=== PATIENT | female | born 2000 | race Caucasian/White ===

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

== ENCOUNTER 2019-08-21 09:31 | Emergency (ER) | payer OTHER ==
[2019-08-21 09:36] VITALS: BP 110/62; PULSE 87; TEMP 98.2; BMI 17.5
--- NOTE | 2019-08-21 09:57 | PDOC ---
History of Present Illness - General Chief Complaint: Injury Stated Complaint: HEAD INJURY Time Seen by Provider: 08/21/19 09:56 History Source: Patient Exam Limitations: No Limitations - History of Present Illness Initial Comments: Pt is a 18 yo F, with PMH of open R tibia fracture (s/p hardware placement), who is presenting after a fall just prior to arrival. Pt states her sweater got caught in the door just above the stairway, and she tripped forward, tumbling down the flight (10) steps. There was an open door at the bottom of the stairwell, which pt hit the L side of her head against. Pt complains now of midline upper spinal pain, and pain over the L anabaptist and R wrist at the base of the thumb. Pt denies any LOC, nausea/vomiting, or confusion. Mother and grandmother witnessed the fall, and state pt has been at baseline behavior. Pt denies recent fevers/chills, headache, vision changes, syncope, chest pain, palpitations, SOB, nausea/vomiting, abdominal pain, urinary symptoms, diarrhea/ constipation, or leg swelling. Pt states this fall was an accident, and has no SI or HI. Allergies: NKDA PCP: Dr. Martinez Pain Management: Dr. Jose Copeland -- pt takes percocet and gabapentin for R lower leg pain Social: Pt denies any cigarette, alcohol, or drug use. Pt is currently undomiciled. Pt denies any recent travel or sick contacts. Surgical: R tibia, see above Family: no relevant history. 08/21/19 11:47 08/21/19 11:51 Past History - Travel Traveled outside of the country in the last 30 days: No Close contact w/someone who was outside of country & ill: No - Past Medical History Allergies/Adverse Reactions: Allergies Allergy/AdvReac Type Severity Reaction Status Date / Time No Known Drug Allergies Allergy Verified 08/21/19 09:36 seafood Allergy Mild Swelling Uncoded 08/21/19 09:36 Home Medications: Ambulatory Orders Ferrous Sulfate [Feosol] 325 mg PO DAILY 07/01/18 Pnv,Calcium 72/Iron/Folic Acid [ Plus Tablet] 1 tab PO DAILY 07/01/18 Ibuprofen [Motrin -] 400 mg PO QID #28 tablet 07/04/18 Asthma: No Cancer: No Cardiac Disorders: No COPD: No Diabetes: No HTN: No Seizures: No Thyroid Disease: No - Immunization History Immunization Up to Date: Yes - Psycho Social/Smoking Cessation Hx Smoking Status: No Smoking History: Current every day smoker Have you smoked in the past 12 months: Yes Number of Cigarettes Smoked Daily: 20 Information on smoking cessation initiated: No Hx Alcohol Use: No Drug/Substance Use Hx: No Substance Use Type: None Hx Substance Use Treatment: No Trauma Specific PMHX - Complaint Specific PMHX Arthritis: No Back Injury: No Neck Injury: No Hx Sacro Iliac Joint Dysfunction: No Review of Systems - Review of Systems Able to Perform ROS?: Yes Is the patient limited Czech proficient: No Constitutional: Yes: Weight Stable. No: Chills, Diaphoresis, Fever, Loss of Appetite, Malaise, Weakness HEENTM: No: Blurred Vision, Recent change in vision, Nose Congestion, Nose Bleeding, Hearing Loss, Throat Pain, Throat Swelling, Mouth Pain, Difficulty Swallowing, Mouth Swelling Respiratory: No: Cough, Orthopnea, Shortness of Breath Cardiac (ROS): No: Chest Pain, Edema, Irregular Heart Rate, Lightheadedness, Palpitations, Syncope, Chest Tightness ABD/GI: No: Constipated, Diarrhea, Nausea, Poor Appetite, Poor Fluid Intake, Vomiting : No: Burning, Dysuria, Frequency, Flank Pain, Hematuria, Pain, Urgency Musculoskeletal: Yes: See HPI, Back Pain, Joint Pain, Joint Swelling, Neck Pain. No: Muscle Pain, Muscle Weakness, Joint Stiffness Integumentary: Yes: Bruising. No: Rash Neurological: No: Headache, Numbness, Weakness, Unsteady Gait, Dizziness Psychiatric: No: Sleep Pattern Change Endocrine: No: Increased Urine, Change in Weight Hematologic/Lymphatic: No: Anemia, Blood Clots, Easy Bleeding, Easy Bruising All Other Systems: Reviewed and Negative *Physical Exam - Vital Signs Last Vital Signs Temp Pulse Resp BP Pulse Ox 98.2 F 87 14 110/62 95 08/21/19 09:32 08/21/19 09:32 08/21/19 09:32 08/21/19 09:32 08/21/19 09:32 - Physical Exam Comments: Vitals stable, pt afebrile. Pt in NAD, thin body habitus. Pt in C-collar, mild abrasions to face and arms. Pt alert and oriented x3. insurance account executive generally intact, muscular strength and sensation intact. +Midline spinal tenderness in cervical and upper thoracic region; no step-offs, or crepitus. No visible deformations. Head normocephalic. Mild abrasions over forehead, ecchymosis over L anabaptist, no open lacerations. No obvious hematomas. R wrist edema with TTP at base of dorsal R thumb in snuffbox. Eyes PERRLA, EOMI. Oropharynx without erythema or exudates, no LAD b/l. No oral trauma. No nasal congestion or bleeding. Hearing intact. No hemotympanum. Clear heart sounds, S1/S2, no JVD, b/l pedal edema, or heart murmur. Clear lung sounds, no respiratory distress, wheezes, crackles, or accessory muscle use. No abdominal or CVA tenderness to palpation, no rebound, no guarding. Abdomen soft, non-distended, and with normoactive bowel sounds. Skin without jaundice or rash. 08/21/19 11:52 Medical Decision Making - Medical Decision Making Pt was seen at bedside, also will be seen by attending Dr. Prince. Pt presenting with neck and R wrist pain after a fall. Negative PECARN, will observe and not obtain head CT at this time. Pt has been ambulatory in ED. Will evaluate with x-ray of R wrist and C-spine CT. Urine negative. Provided 10 mg/kg motrin for improvement of pain. Will continue to reassess pt and monitor for symptomatic improvement. 08/21/19 11:55 CT cervical and thoracic spine negative for fractures. Pt eloped from ER before x-ray of wrist or splint could be applied. Pt called in waiting room x3 with no response. 08/21/19 14:39 Discharge - Discharge Information Problems reviewed: Yes Clinical Impression/Diagnosis: Neck pain Fall Qualifiers: Encounter type: initial encounter Qualified Code(s): W19.XXXA - Unspecified fall, initial encounter Condition: Stable Disposition: ELOPED - Admission No - Follow up/Referral Referrals: Krista Martinez MD [Primary Care Provider] - - Patient Discharge Instructions - Post Discharge Activity
--- NOTE | 2019-08-21 10:05 | PDOC ---
Attending Attestation - Resident Resident Name: Selina Elena - HPI HPI: 08/21/19 13:16 pt presents to the ED complaining of neck pain after fall down 10 steps. Denies LOC, chest or abdominal pain. Ambulatory in the ED. Does complain of back and neck pain and pain in the r wrist 08/21/19 13:21 - Physicial Exam PE: 08/21/19 13:22 Gen: alert, NAD. Oriented x 3. Ambulatory in the ED with normal gait. - Medical Decision Making 08/21/19 13:22 Pt presents to the ED complaining of back pain, neck pain and wrist pain after fall down [address] of the cervical and thoracic spine checked to rule out cervical or thoracic spine injury and is negative. Plan was to check xrays of the wrist, but patient eloped from xray. She understood that she was to stay for further management.
[2019-08-21 10:14] LABS: EPI CELLS 4.2 /HPF (0-5/HPF); HYALINE CASTS 4 /lpf (0-8); URINE APPEARANCE CLEAR; URINE BACTERIA 41.5 /hpf (NEGATIVE); URINE BILIRUBIN NEGATIVE (NEGATIVE); URINE COLOR YELLOW; URINE GLUCOSE (UA) NEGATIVE (NEGATIVE); URINE KETONE NEGATIVE (NEGATIVE); URINE LEUK ESTERASE TRACE (NEGATIVE); URINE NITRITE NEGATIVE (NEGATIVE); URINE PROTEIN NEGATIVE (NEGATIVE); URINE RBC 19 /hpf (0-4); URINE WBC 7 /hpf (0-5)
[2019-08-21] MEDS ORDERED: IBUPROFEN 400 MG TABLET (FP) PO ONE ×3 (10:31→11:00)
== END 2019-08-21 14:00 | disposition left against medical advice (07) ==
LOC: JER 09:31
DX: M54.2 Cervicalgia (principal); M54.6 Pain in thoracic spine; M25.531 Pain in right wrist; W10.8XXA Fall (on) (from) other stairs and steps, initial encounter; Y93.89 Activity, other specified; Y92.038 Other place in apartment as the place of occurrence of the external cause; Y99.8 Other external cause status; Z91.013 Allergy to seafood
CPT/HCPCS: 72125-TC; 72128-TC; 81003; 84703; 99283-25